=== PATIENT | female | born 1975 | race Caucasian/White ===

== ENCOUNTER → 2017-03-16 | Outpatient (CLI) | payer OTHER ==
--- NOTE | ~2017-03-16 | PUL ---
PAT[facility]'S [facility] 41 [facility] [address] ROOM: [place] [id number] LOCATION: [facility] ADMIT DATE: 03/16/2017 Pulmonary DISCHARGE DATE: FAMILY PHYSICIAN: PHYSICIAN, NO ATTENDING PHYSICIAN: Martha Lucas NAME OF PROCEDURE: Pulmonary Function Test with Methacholine Challenge DATE OF PROCEDURE: March 16, 2017 TECH: ATripe, PATIENT [employer] REASON FOR EXAM: Chronic cough PROCEDURES PERFORMED: Spirometry with bronchodilator assessment. Measurement of maximum voluntary ventilation. Measurement of lung volumes. Measurement of diffusion capacity. Methacholine challenge test. RESULTS: Spirometry shows FVC was 3.48 liters or 91% of predicted. FEV1 was 2.76 liters or 89% of predicted. FEV1/FVC was 79% or 96% of predicted. FEF25- 75% was 2.77 liters/second. The maximum voluntary ventilation was 59 liters/minute or 55% of predicted. This data did not changed significantly following inhaled bronchodilator. Lung volumes show total lung capacity was 4.76 liters or 91% of predicted. Functional residual capacity was 1.95 liters or 83% of predicted. Residual volume was 1.22 liters or 70% of predicted. The diffusing capacity not adjusted for hemoglobin was 61% of predicted. The single breath alveolar volume was 3.65 liters which is a marginal estimate off total lung capacity. The flow volume loop shows flattening of the inspiratory limb which might represent variable extrathoracic obstruction. Methacholine challenge showed a decrease in FEV1 by 37% noted at the level 4, suggestive of mild bronchial hyper-reactivity. PHYSICIAN INTERPRETATION: This data and corresponding flow volumes are compatible with normal pulmonary function, normal lung volumes, and mild impairment of gas transfer. The flow volume pattern shows flattening of the inspiratory limb, which might suggest variable extrathoracic obstruction. Methacholine challenge test showed mild bronchial hyper-reactivity. Clinical correlation recommended. YASH PEOPLES MD PATIENT'S NAME: YUNI [facility] AGE: 41 Y [address] ROOM: [place] [id number] LOCATION: [facility] ADMIT DATE: 03/16/2017 Pulmonary DISCHARGE DATE: FAMILY PHYSICIAN: PHYSICIAN, NO ATTENDING PHYSICIAN: Martha Lucas /[id number] dtt: 03/18/17 1634 , YASH PEOPLES dtd: 03/18/17 1343
== END | disposition disaster alternative care site (69) ==
LOC: GRAD 08:00 → GRTH 12:42
DX: R05 Cough (principal)
CPT/HCPCS: J7674